=== PATIENT | male | born 1995 | race Caucasian/White ===

== ENCOUNTER → 2016-07-27 | Outpatient (CLI) | payer BC ==
--- NOTE | 2016-07-27 12:21 | KCIC ---
PROCEDURE CT abdomen pelvis without contrast HISTORY Left flank pain times 10 days, hematuria, UTI. TECHNIQUE Helical CT imaging of the abdomen and pelvis is performed without IV or oral contrast using renal stone protocol. PQRS: One or more the following individualized dose reduction techniques were utilized for the study: 1. Automated exposure control. 2. Adjustment of the mA and/or kV according to patient size. 3. Use of iterative reconstruction technique. COMPARISON None. FINDINGS Evaluation of solid organs and bowel is limited without oral and IV contrast, decreasing sensitivity for detection of pathology. This is standard for renal stone protocol. Lung bases clear. Cardiac size normal. The liver, spleen, gallbladder, pancreas, adrenal glands, and abdominal aortic caliber are normal. No renal, ureteral, or bladder calculus. No perinephric stranding or hydronephrosis. Stomach unremarkable. No dilated small bowel. The appendix is normal. Scattered stool in the colon. No evidence of colitis. No abdominal adenopathy or free fluid. Urinary bladder is not well distended accentuating wall thickness, otherwise normal. Prostate size normal. No pelvic free fluid. No acute bone abnormality. IMPRESSION No obstructive uropathy. Electronically signed by: Juan Hurd MD (Jul 27, 2016 12:20:01)
== END | disposition home or self-care (01) ==
LOC: KCIC CT 11:54
PROVIDERS: ATTEND Nurse Practitioner Family
DX: R31.9 Hematuria, unspecified (principal); N20.0 Calculus of kidney
CPT/HCPCS: 74176

== ENCOUNTER 2016-08-03 20:50 | Emergency (ER) | payer BC ==
[~2016-08-03] VITALS: Ht 172.7 cm; Wt 68.0 kg
[2016-08-03 21:02] VITALS: BP 164/100
--- NOTE | 2016-08-03 21:30 | PHYS DOC ---
Past Medical History Past Medical History: Diabetes-Type I Past Surgical History: Tonsillectomy Additional Past Surgical Histo: addnoids, cyst removed from right cheek Additional Information: Nonsmoker Alcohol Use: None Drug Use: None Adult General Chief Complaint Chief Complaint: FACE PROBLEM HPI HPI Patient is a 20 year old male who presents with right jaw swelling that started just prior to arrival this evening. He was eating dinner when he began to notice swelling. He denies any dental pain, fever, or sore throat. His PCP is Laurie Ewing APRN. Review of Systems Review of Systems Constitutional: Denies fever or chills. [] Eyes: Denies change in visual acuity, redness, or eye pain. [] HENT: Denies ear pain, nasal congestion or sore throat. Denies dental pain. Reports right jaw swelling. Respiratory: Denies cough or shortness of breath. [] Cardiovascular: Denies chest pain, palpitations or edema. [] Integument: Denies rash or skin lesions. [] Neurologic: Denies headache, focal weakness or sensory changes. [] Allergies Allergies Allergies Coded Allergies Type Severity Reaction Last Updated Verified Penicillins Allergy Mild rash 08/03/16 Yes Physical Exam Physical Exam Constitutional: Well developed, well nourished, no acute distress, non-toxic appearance. [] HENT: Normocephalic, atraumatic, bilateral external ears normal, oropharynx moist, no oral exudates, nose normal. Bilateral TMs without erythema or bulging. There is no posterior pharyngeal erythema or tonsillar edema. There are no dental caries or dental tenderness. There is mild tenderness over the parotid duct and parotid gland with mild swelling of the gland. Eyes: PERRLA, EOMI, conjunctiva normal, no discharge. [] Neck: Normal range of motion, no tenderness, supple, no stridor. [] Skin: Warm, dry, no erythema, no rash. [] Neurologic: Alert and oriented X 3, normal motor function, normal sensory function, no focal deficits noted. [] Psychologic: Affect normal, judgement normal, mood normal. [] Current Patient Data Vital Signs Vital Signs Date Time Temp Pulse Resp B/P Pulse Ox O2 Delivery O2 Flow Rate FiO2 08/03/16 21:02 98.2 127 18 100 Room Air 98.2 EKG EKG [] Radiology/Procedures Radiology/Procedures [] Course & Med Decision Making Course & Med Decision Making Pertinent Labs and Imaging studies reviewed. (See chart for details) [] Dragon Disclaimer Dragon Disclaimer This electronic medical record was generated, in whole or in part, using a voice recognition dictation system. Departure Departure Impression: Primary Impression: Parotid sialolithiasis Disposition: HOME, SELF-CARE Condition: STABLE Referrals: LAURIE EWING APRN (PCP) Patient Instructions: Parotitis, [id number] Additional Instructions: You were seen for a stone in the parotid salivary gland causing a blockage of the gland's duct. The main treatment for this is to eat foods that cause heavy salivation to attempt to unblock the duct. If the stone remains in the duct and blocks the gland, an infection may develop. Please follow up with Dr. Rivera, ENT doctor, if your pain or swelling continue. Call as soon as possible to arrange. [phone] Return to the emergency department if you have fever or other new or concerning symptoms. RENE CORDERO Aug 03, 2016 21:30
== END 2016-08-03 21:34 | disposition home or self-care (01) ==
LOC: ER 20:50
DX: K11.5 Sialolithiasis (principal); E10.9 Type 1 diabetes mellitus without complications; Z88.0 Allergy status to penicillin; Z90.89 Acquired absence of other organs
CPT/HCPCS: 99281

== ENCOUNTER → 2016-10-08 | Outpatient (CLI) | payer BC ==
[2016-08-03 21:23] VITALS: BP 141/91
--- NOTE | 2016-10-08 13:45 | KCIC ---
PROCEDURE Renal ultrasound. HISTORY Left flank pain. TECHNIQUE Renal ultrasound was performed. COMPARISON CT from July 27, 2016. FINDINGS Right kidney measures at least 13.2 centimeters in length and the left 13.0 centimeters. There is no hydronephrosis or new renal mass. Aorta is normal caliber. IVC is patent. Bladder is not well distended, patient recently voided. Neither urine jet is documented. IMPRESSION Normal renal ultrasound. Electronically signed by: Josiah Ward MD (October 08, 2016 13:43:51)
== END | disposition home or self-care (01) ==
LOC: KCIC US 12:57
PROVIDERS: ATTEND Nurse Practitioner Occupational Health
DX: R10.9 Unspecified abdominal pain (principal)
CPT/HCPCS: 76770